=== PATIENT | female | born 1970 ===

== ENCOUNTER 2020-02-26 07:18 | Inpatient (IN) | payer OTHER ==
[~2020-02-26] VITALS: Ht 162.6 cm; Wt 113.4 kg
[~2020-02-26 07:18] MED LIST: CELEBREX200MG PO; COZAAR50 MG PO
[2020-02-28] MEDS ORDERED: [UNRECOGNIZED DRUG - REMARK] (09:47)
== END 2020-03-01 18:47 | DRG 470 ==
LOC: RECOVERY 02-28 07:00 → O/R 02-28 09:02 → SURG 02-28 09:02 → RECOVERY 02-28 10:25 → SURG 02-28 11:38
PROVIDERS: ADMIT Orthopaedic Surgery; ATTEND Orthopaedic Surgery
PROC: 0MNN0ZZ Release Right Knee Bursa and Ligament, Open Approach (ICD-10-PCS; 2020-02-28)
PROC: 0SRC0JZ Replacement of Right Knee Joint with Synthetic Substitute, Open Approach (ICD-10-PCS; principal; 2020-02-28 07:00)
DX: M17.11 Unilateral primary osteoarthritis, right knee (principal); D62 Acute posthemorrhagic anemia; M22.11 Recurrent subluxation of patella, right knee; M85.661 Other cyst of bone, right lower leg; I10 Essential (primary) hypertension; E66.01 Morbid (severe) obesity due to excess calories